=== PATIENT | female | born 1955 | race Caucasian/White ===

== ENCOUNTER 2017-04-10 18:36 | Observation (INO) | payer OTHER ==
--- NOTE | 2017-04-10 20:33 | ERPHSYRPT ---
- History of Present Illness Time Seen by Provider: 04/10/17 20:32 Source: patient Exam Limitations: no limitations Patient Subjective Stated Complaint: Has had a cough for approximately 6 months. Had lab work done yesterday and was called by the doctors office and told to come to the hospital to be admitted. Triage Nursing Assessment: Pt A&O x3, unstable gait, lungs clear, doesn't appear to be in any distress. Physician History: Has had a cough for approximately 6 months. Had lab work done yesterday and was called by the doctors office and told to come to the hospital to be admitted. Timing/Duration: week(s) Associated Symptoms: cough Allergies/Adverse Reactions: No Known Drug Allergies Allergy (Unverified 04/25/14 10:46) Home Medications: Alprazolam 0.25 mg [xanAX 0.25 MG] 0.25 mg PO BID 04/25/14 [History] Hydrochlorothiazide 12.5 mg PO DAILY 04/25/14 [History] Lisinopril 40 mg PO DAILY 04/25/14 [History] Metformin HCl 1000 mg [Glucophage 1000 MG] 1,000 mg PO BID 04/25/14 [History] Metoprolol Succinate 50 mg [Toprol Xl 50 MG] 50 mg PO BID 04/25/14 [ History] Sertraline HCl 100 mg [Zoloft 100 MG] 100 mg PO DAILY 04/25/14 [History] Hx Tetanus, Diphtheria Vaccination/Date Given: Yes Hx Influenza Vaccination/Date Given: Yes (2013) Hx Pneumococcal Vaccination/Date Given: No Immunizations Up to Date: Yes - Review of Systems Constitutional: No Fever, No Chills Eyes: No Symptoms Ears, Nose, & Throat: No Symptoms Respiratory: No Cough, No Dyspnea Cardiac: No Chest Pain, No Edema, No Syncope Abdominal/Gastrointestinal: No Abdominal Pain, No Nausea, No Vomiting, No Diarrhea Genitourinary Symptoms: No Dysuria Musculoskeletal: No Back Pain, No Neck Pain Skin: No Rash Neurological: No Dizziness, No Focal Weakness, No Sensory Changes Psychological: No Symptoms Endocrine: No Symptoms All Other Systems: Reviewed and Negative - Past Medical History Pertinent Past Medical History: Yes ENT History: Other Respiratory History: Other Endocrine Medical History: Diabetes Type II Other Medical History: 1/2 THYROID REMOVED, CHRONIC COUGH, HEARING LOSS IN BOTH EARS FOR APPROX 3 DAYS 6 WEEKS AGO - Past Surgical History Past Surgical History: Yes Musculoskeletal: Orthopedic Surgery Other Surgical History: THYROIDECTOMY, LEILANI IN LEFT LEG - Social History Smoking Status: Never smoker Exposure to second hand smoke: No Drug Use: none Patient Lives Alone: No - Female History Hx Now: No - Nursing Vital Signs Nursing Vital Signs: Initial Vital Signs Temperature 97.8 F 04/10/17 20:17 Pulse Rate 67 04/10/17 20:17 Blood Pressure 156/61 04/10/17 20:17 O2 Sat by Pulse Oximetry 94 L 04/10/17 20:17 Pain Scale Pain Intensity 0 - Physical Exam General Appearance: no apparent distress, alert Eye Exam: PERRL/EOMI, eyes nml inspection Ears, Nose, Throat Exam: normal ENT inspection, TMs normal, pharynx normal, moist mucous membranes Neck Exam: normal inspection, non-tender, supple, full range of motion Respiratory Exam: normal breath sounds, lungs clear, No respiratory distress Cardiovascular Exam: regular rate/rhythm, normal heart sounds, normal peripheral pulses Gastrointestinal/Abdomen Exam: soft, normal bowel sounds, No tenderness, No mass Back Exam: normal inspection, normal range of motion, No CVA tenderness, No vertebral tenderness Extremity Exam: normal inspection, normal range of motion, pelvis stable Neurologic Exam: alert, oriented x 3, cooperative, normal mood/affect, nml cerebellar function, nml station & gait, sensation nml, No motor deficits Skin Exam: normal color, warm, dry, No rash Lymphatic Exam: No adenopathy SpO2: 94 Oxygen Delivery: Room Air - Course Nursing assessment & vital signs reviewed: Yes Ordered Tests: Active Orders 24 hr Category Date Time Status Oxygen-ED Only NASAL CANNULA 2 lpm Care 04/10/17 20:42 Active Medication Summary Generic Name Dose Route Start Last Admin Trade Name Freq PRN Reason Stop Dose Admin Ceftriaxone Sodium/Dextrose 1 g in 50 mls @ 100 mls/hr 04/10/17 20:42 Rocephin 1 Gm-D5w 50 Ml Bag IV 04/10/17 21:11 STAT STA Sodium Chloride 1,000 mls @ 999 mls/hr 04/10/17 20:42 Sodium Chloride 0.9% 1000 Ml IV 04/10/17 21:42 .Q1H1M STA - Progress Progress: unchanged Counseled pt/family regarding: lab results, diagnosis, need for follow-up, rad results - Departure Time of Disposition: 20:43 Departure Disposition: Observation Clinical Impression: Acute renal insufficiency, Dehydration, Cough Condition: Fair Critical Care Time: Yes Critical Care Time(excluding separately billable procedures): 30-74 minutes Referrals: SARA FAIRCHILD [Primary Care Provider] -
[2017-04-10] MEDS ORDERED: Sodium Chloride 0.9% 1000 ML 1,000 ML IV STA (20:42)
[2017-04-10] MEDS ORDERED: ROCEPHIN 1 Gm-D5w 50 ml Bag** 1 G/50 ML IVPB IV STA (20:42)
[2017-04-10] MEDS ORDERED: Sodium Chloride 0.9% 1000 ML 1,000 ML ONE (20:45)
[2017-04-10] MEDS ORDERED: ROCEPHIN 1 Gm-D5w 50 ml Bag** 1 G/50 ML IVPB IV ONE (20:45)
[2017-04-10] MEDS ORDERED: Sodium Chloride 0.9% 1000 ML 1,000 ML IV SCH (22:15)
[2017-04-10] MEDS ORDERED: TYLENOL 325 MG PO PRN (22:15)
[2017-04-10] MEDS ORDERED: Lantus Insulin ONE (23:11)
[2017-04-10] MEDS ORDERED: Lantus Insulin SQ SCH (23:23)
[2017-04-11 00:44] LABS: Bilirubin NEGATIVE (NEGATIVE); Blood TRACE NON-HEM Ery/ul (0-5); COMPLETE URINE MICROSCOPIC? YES; Collection Type CLEAN CATCH; Glucose 100 mg/dL (NEGATIVE); Leukocyte Esterase NEGATIVE (NEGATIVE)
[2017-04-11 00:45] LABS: Epithelial Cells FEW /HPF (FEW); Mucus SLIGHT /HPF (NEGATIVE)
[2017-04-11] MEDS ORDERED: DUONEB 0.5-3 MG/3 ml Neb IH SCH (01:00)
[2017-04-11 05:37] LABS: Mean Corpuscular Hemoglobin 26.5 pg (26-32); Mean Platelet Volume 8.7 fl (6-9.5); Platelet Count 318 K/mm3 (150-450); Red Blood Count 3.39 M/mm3 (4.1-5.4); Red Cell Distribution Width 16.1 % (11.5-14.0); White Blood Count 15.4 K/mm3 (4.0-10.5)
[2017-04-11 06:11] LABS: ALBUMIN 2.1 g/dL (3.4-5.0); BILIRUBIN,TOTAL 0.2 mg/dL (0.2-1.0); Carbon Dioxide 19.4 mEq/L (21-32); Potassium 4.3 mEq/L (3.5-5.1); Total Protein 6.7 gm/dL (6.4-8.2)
[2017-04-11 07:37] LABS: Total Cells Counted 100
[2017-04-11 07:38] LABS: ANISOCYTOSIS 1+; Platelet Estimate NORMAL (NORMAL); Poikilocytosis 1+
--- NOTE | 2017-04-11 08:45 | XRAY ---
Indication: Chronic cough. New admission. Comparison: March 31, 2017. AP/lateral chest again hyperinflated with now subtle lingular and right base infiltrate versus atelectasis. No consolidation/large effusion. Heart is not enlarged. Vascularity normal. Stable right ventricular shunt catheter, bony degenerative changes, mild scoliosis, and old right humeral fracture. Impression: Interval developing lingular and right base infiltrate/atelectasis. Correlate clinically. Comment: Preliminary interpretation was made by [facility] who does not report the lung findings.
--- NOTE | 2017-04-11 09:12 | PCM.HP ---
History of Present Illness - Chief Complaint Chief Complaint: cough and elevated wbc Date: 04/11/17 History of Present Illness: is a 62 year old female. who suffers from htn, diabetes and ckd stage IV. She saw Dr. Vargas a couple days ago and had labs drawn on 04/08 that showed luekocystois and a worsening of her ckd her creatinine was up to 2.8 and baseline is around 2.2 it appears. She follows with Dr. Beard. She has been having cough for several weeks and has been on prednisone up until a couple days ago. She otherwise feels ok. She was drinking a little less. She has no fever or chills. No vomiting or diarrhea. no skin infections or dysuria. She did stop her lisinopril 3 days ago under direction of Dr. Vargas. She is wanting to go home if possible as she has grandchildren she hasn't seen in a few years coming to visit today from [place]. - Review of Systems Constitutional: No Fever, No Chills Eyes: No Symptoms Ears, Nose, & Throat: No Symptoms Respiratory: Cough, No Short Of Breath Cardiac: No Chest Pain, No Edema, No Syncope Abdominal/Gastrointestinal: No Abdominal Pain, No Nausea, No Vomiting, No Diarrhea Genitourinary Symptoms: No Dysuria Musculoskeletal: No Back Pain, No Neck Pain Skin: No Rash Neurological: No Dizziness, No Focal Weakness, No Sensory Changes Psychological: No Symptoms Endocrine: No Symptoms Hematologic/Lymphatic: No Symptoms Immunological/Allergic: No Symptoms Medications & Allergies Home Medications: Home Medication List Metoprolol Succinate 50 mg [Toprol Xl 50 MG] 50 mg PO BID 04/25/14 [ History Confirmed 04/10/17] Sertraline HCl 100 mg [Zoloft 100 MG] 100 mg PO DAILY 04/25/14 [History Confirmed 04/10/17] Atorvastatin Calcium 40 mg PO DAILY 04/10/17 [History Confirmed 04/10/17] Ergocalciferol (Vitamin D2) [Vitamin D2] 50,000 unit PO Q7D 04/10/17 [History Confirmed 04/10/17] Ferrous Sulfate 325 mg [Feosol 325 mg] 325 mg PO BID 04/10/17 [History Confirmed 04/10/17] Folic Acid 1 mg PO DAILY 04/10/17 [History Confirmed 04/10/17] Furosemide 20 mg PO DAILY 04/10/17 [History Confirmed 04/10/17] Insulin Detemir [Levemir] 70 units SQ BID 04/10/17 [History Confirmed 04/10/17] Insulin Lispro [Humalog] 30 unit SQ TID 04/10/17 [History Confirmed 04/10/17] Sertraline HCl 50 mg [Zoloft 50 mg Tablet] 50 mg PO DAILY 04/10/17 [History Confirmed 04/10/17] Doxycycline Hyclate 100 mg [Vibramycin 100 MG] 100 mg PO BID #14 tab 04/11 [Rx] Allergies/Adverse Reactions: Allergies Allergy/AdvReac Type Severity Reaction Status Date / Time No Known Drug Allergies Allergy Verified 04/10/17 21:10 - Past Medical History Past Medical History: Yes Neurological History: No Pertinent History ENT History: Other Cardiac History: No Pertinent History Respiratory History: Other Endocrine Medical History: Diabetes Type II Musculoskelatal History: No Pertinent History GI Medical History: No Pertinent History History: No Pertinent History Pyscho-Social History: No Pertinent History Reproductive Disorders: No Pertinent History Comment: 1/2 THYROID REMOVED, CHRONIC COUGH, HEARING LOSS IN BOTH EARS FOR APPROX 3 DAYS 6 WEEKS AGO, optic nerve damage left eye - Female History Are you now?: No - Past Surgical History Past Surgical History: Yes Neuro Surgical History: No Pertinent History Cardiac History: No Pertinent History Respiratory Surgery: No Pertinent History GI Surgical History: No Pertinent History Genitourinary Surgical Hx: No Pertinent History Musculskeletal Surgical Hx: Orthopedic Surgery Female Surgical History: No Pertinent History Other Surgical History: THYROIDECTOMY 13 yrs ago, LEILANI IN LEFT LEG - Social History Smoking Status: Never smoker Exposure to second hand smoke: No Alcohol: None Drug Use: none - Physical Exam Vital Signs: Vital Signs - 24 hr Temp Pulse Resp BP Pulse Ox 04/11/17 06:49 98.4 F 82 16 163/76 91 L 04/11/17 04:00 98.3 F 74 14 169/77 95 04/10/17 23:40 76 18 98 04/10/17 23:32 98.4 F 70 15 169/76 96 04/10/17 20:44 94 L 04/10/17 20:17 97.8 F 67 156/61 94 L General Appearance: no apparent distress, alert Neurologic Exam: alert, oriented x 3, cooperative, normal mood/affect, nml cerebellar function, nml station & gait, sensation nml, No motor deficits Eye Exam: PERRL/EOMI, eyes nml inspection Ears, Nose, Throat Exam: normal ENT inspection, TMs normal, pharynx normal, moist mucous membranes Neck Exam: normal inspection, non-tender, supple, full range of motion Respiratory Exam: normal breath sounds, lungs clear, No respiratory distress Cardiovascular Exam: regular rate/rhythm, normal heart sounds, normal peripheral pulses Gastrointestinal/Abdomen Exam: soft, normal bowel sounds, No tenderness, No mass Back Exam: normal inspection, normal range of motion, No CVA tenderness, No vertebral tenderness Extremity Exam: normal inspection, normal range of motion, pelvis stable Skin Exam: normal color, warm, dry, No rash Lymphatic Exam: No adenopathy Results - Labs Lab/Micro Results: Accuchecks Date 04/10/17 Time 22:45 Accucheck Value: 112 Lab Results-Last 24 Hours 04/10/17 04/10/17 04/11/17 Range/Units 23:02 23:21 05:17 WBC 15.4 H (4.0-10.5) K/mm3 RBC 3.39 L (4.1-5.4) M/mm3 Hgb 9.0 L (12.0-16.0) gm/dl Hct 29.5 L (35-47) % MCV 87.0 (78-100) fl MCH 26.5 (26-32) pg MCHC 30.5 L (32-36) g/dl RDW 16.1 H (11.5-14.0) % Plt Count 318 (150-450) K/mm3 MPV 8.7 (6-9.5) fl Segmented Neutrophils 74 H (36.0-66.0) % Lymphocytes (Manual) 24 (24-44) % Monocytes (Manual) 2 (0.0-12.0) % Differential Comment ABNORMAL Platelet Estimate NORMAL (NORMAL) Poikilocytosis 1+ Anisocytosis 1+ Sodium (136-145) mEq/L Potassium (3.5-5.1) mEq/L Chloride (98-107) mEq/L Carbon Dioxide (21-32) mEq/L Anion Gap (5-15) MEQ/L BUN (9-20) mg/dL Creatinine (0.55-1.30) mg/dl Estimated GFR ML/MIN Glucose (70-110) MG/DL Calcium (8.5-10.1) mg/dL Total Bilirubin (0.2-1.0) mg/dL AST (15-37) U/L ALT (12-78) U/L Alkaline Phosphatase (46-116) U/L Serum Total Protein (6.4-8.2) gm/dL Albumin (3.4-5.0) g/dL Ur Collection Type CLEAN CATCH Urine Color YELLOW (YELLOW) Urine Appearance CLOUDY (CLEAR) Urine pH 5.0 (5-6) Ur Specific [place] 1.020 (1.005-1.025) Urine Protein 100 (Negative) Urine Ketones NEGATIVE (NEGATIVE) Urine Blood TRACE NON-HEM (0-5) Severo/ul Urine Nitrite NEGATIVE (NEGATIVE) Urine Bilirubin NEGATIVE (NEGATIVE) Urine Urobilinogen NORMAL (0-1) mg/dL Ur Leukocyte Esterase NEGATIVE (NEGATIVE) Urine Microscopic RBC 0-2 (0-2) /HPF Ur Epithelial Cells FEW (FEW) /HPF Amorphous Crystals FEW (NEGATIVE) /HPF Urine Mucus SLIGHT (NEGATIVE) /HPF Urine Glucose 100 (NEGATIVE) mg/dL Influenza Type A Ag NEGATIVE (NEGATIVE) Influenza Type B Ag NEGATIVE (NEGATIVE) RSV (PCR) NEGATIVE (Negative) Specimen Received [id number] 04/11/17 Range/Units 05:17 WBC (4.0-10.5) K/mm3 RBC (4.1-5.4) M/mm3 Hgb (12.0-16.0) gm/dl Hct (35-47) % MCV (78-100) fl MCH (26-32) pg MCHC (32-36) g/dl RDW (11.5-14.0) % Plt Count (150-450) K/mm3 MPV (6-9.5) fl Segmented Neutrophils (36.0-66.0) % Lymphocytes (Manual) (24-44) % Monocytes (Manual) (0.0-12.0) % Differential Comment Platelet Estimate (NORMAL) Poikilocytosis Anisocytosis Sodium 141 (136-145) mEq/L Potassium 4.3 (3.5-5.1) mEq/L Chloride 111 H (98-107) mEq/L Carbon Dioxide 19.4 L (21-32) mEq/L Anion Gap 15.0 (5-15) MEQ/L BUN 45 H (9-20) mg/dL Creatinine 2.64 H (0.55-1.30) mg/dl Estimated GFR 19 ML/MIN Glucose 150 H (70-110) MG/DL Calcium 8.8 (8.5-10.1) mg/dL Total Bilirubin 0.20 (0.2-1.0) mg/dL AST 15 (15-37) U/L ALT 16 (12-78) U/L Alkaline Phosphatase 113 (46-116) U/L Serum Total Protein 6.7 (6.4-8.2) gm/dL Albumin 2.1 L (3.4-5.0) g/dL Ur Collection Type Urine Color (YELLOW) Urine Appearance (CLEAR) Urine pH (5-6) Ur Specific [place] (1.005-1.025) Urine Protein (Negative) Urine Ketones (NEGATIVE) Urine Blood (0-5) Severo/ul Urine Nitrite (NEGATIVE) Urine Bilirubin (NEGATIVE) Urine Urobilinogen (0-1) mg/dL Ur Leukocyte Esterase (NEGATIVE) Urine Microscopic RBC (0-2) /HPF Ur Epithelial Cells (FEW) /HPF Amorphous Crystals (NEGATIVE) /HPF Urine Mucus (NEGATIVE) /HPF Urine Glucose (NEGATIVE) mg/dL Influenza Type A Ag (NEGATIVE) Influenza Type B Ag (NEGATIVE) RSV (PCR) (Negative) Specimen Received Accuchecks Date 04/10/17 Time 22:45 Accucheck Value: 112 - Radiology Impressions Radiology Exams & Impressions: Radiology Procedures Category Date Time Status CHEST 2 VIEWS (PA AND LAT) Urgent Exams 04/10/17 23:52 Completed Assessment/Plan (1) Pneumonia Current Visit: Yes Status: Acute Qualifiers: Laterality: left Lung location: upper lobe of lung Assessment & Plan: small left lingular pneumonia with luekocytosis and acute on chronic kidney injury. She remains afebrile with slight hypertension no tachycardia and no need for oxygen. Her exam is unremarkable today. She feels a little better with the iv fluids and her creatinine is improved some. She received IV Rocephin and azithromycin. It looks like she may have just been treated with azithromycin recently. She just finished prednisone treatment. Her wbc is improving. She appears clinically stable I encouraged good po intake and she is requesting to go home today. 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 She is to return for worsening symptoms. with her renal insufficiency had her stop her metformin for now until discussing it at f/u Code(s): J18.9 - PNEUMONIA, UNSPECIFIED ORGANISM (2) CKD stage 4 due to type 2 diabetes mellitus Current Visit: Yes Status: Acute Code(s): E11.22 - TYPE 2 DIABETES MELLITUS W DIABETIC CHRONIC KIDNEY DISEASE; N18.4 - CHRONIC KIDNEY DISEASE, STAGE 4 ( SEVERE) (3) Type 2 diabetes mellitus Current Visit: Yes Status: Acute (4) Essential hypertension Current Visit: Yes Status: Acute Code(s): I10 - ESSENTIAL (PRIMARY) HYPERTENSION (5) Chronic anemia Current Visit: Yes Status: Acute Code(s): D64.9 - ANEMIA, UNSPECIFIED
--- NOTE | 2017-04-11 09:15 | PCM.DCORD ---
- Discharge Discharge Date: 04/11/17 Disposition: Home, Self-Care Condition: Fair Prescriptions: New Doxycycline Hyclate 100 mg [Vibramycin 100 MG] 100 mg PO BID #14 tab Continue Sertraline HCl 100 mg [Zoloft 100 MG] 100 mg PO DAILY Metoprolol Succinate 50 mg [Toprol Xl 50 MG] 50 mg PO BID Sertraline HCl 50 mg [Zoloft 50 mg Tablet] 50 mg PO DAILY Ferrous Sulfate 325 mg [Feosol 325 mg] 325 mg PO BID Insulin Detemir [Levemir] 70 units SQ BID Furosemide 20 mg PO DAILY Insulin Lispro [Humalog] 30 unit SQ TID Folic Acid 1 mg PO DAILY Ergocalciferol (Vitamin D2) [Vitamin D2] 50,000 unit PO Q7D Atorvastatin Calcium 40 mg PO DAILY Discontinued Metformin HCl 500 mg [Glucophage 500 MG] 250 mg PO BID Follow up with: SARA FAIRCHILD [Primary Care Provider] - 04/15/17 11:15 am
[2017-04-11] MEDS ORDERED: Zithromax 500 MG/ 250 ML NaCl Premix 500 MG/250 ML IVPB IV SCH ×2 (10:00→22:00)
[2017-04-11] MEDS ORDERED: ENOXAPARIN SODIUM SQ SCH (10:00)
[2017-04-11 11:27] VITALS: BP 184/82; PULSE 85; O2SAT 93
[2017-04-11] MEDS ORDERED: ROCEPHIN 1 Gm-D5w 50 ml Bag** 1 G/50 ML IVPB IV SCH (22:00)
[2017-04-11] MEDS ORDERED: Lantus Insulin SQ SCH (23:00)
== END 2017-04-11 12:35 | disposition home or self-care (01) ==
LOC: ED 18:36 → MED SURG 22:10
PROVIDERS: ADMIT Family Medicine; ATTEND Family Medicine
DX: J18.9 Pneumonia, unspecified organism (principal); I12.9 Hypertensive chronic kidney disease with stage 1 through stage 4 chronic kidney disease, or unspecified chronic kidney disease; E11.22 Type 2 diabetes mellitus with diabetic chronic kidney disease; N18.4 Chronic kidney disease, stage 4 (severe); D64.9 Anemia, unspecified; Z79.4 Long term (current) use of insulin; Z79.899 Other long term (current) drug therapy
CPT/HCPCS: 36000; 36415; 71020; 80053; 81000; 85025; 87631; 94760; 96360; 96361; 96365; 99285; G0378; J0456; J0696; J1650; A9270-GY

== ENCOUNTER 2018-09-30 12:58 | Emergency (ER) | payer OTHER ==
[2018-09-30 13:18] VITALS: O2SAT 100
--- NOTE | 2018-09-30 13:30 | ERPHSYRPT ---
- History of Present Illness Time Seen by Provider: 09/30/18 13:20 Source: patient Exam Limitations: no limitations Patient Subjective Stated Complaint: EMS states low blood sugar at approx 30 per EMS. unresponsive at that time. dialysis pt. IV started and given glucogon and D50 per EMS and was awakening on arrival. confused on where she is. noted open lesions on bilateral lower legs.. she states she has been scratching them she states they are aware of their condition. Triage Nursing Assessment: awake and slightly confused. she arrives after a BS of approx 30 when EMS arrived at their house. D/C from [facility] yesterday. IV was started per EMS and was given glucogon and D50. was awakening when she arrived.. able to state her name but unsure of where she was.. was reassured. denies pain. has open lesions to bilateral lower legs. she states dialysis was aware. of the legs. Physician History: 63-year-old white female brought by medics with complaint of possible hypoglycemic episode. Patient apparently was found on the floor by her family members unresponsive medics were summoned patient was noted to have a blood sugar of 30 she was given an amp of glucagon and an amp of D50 she is now awake and alert oriented. Patient is moving all extremities she has no neurologic deficits. Past medical history includes diabetes type 2, chronic renal failure on dialysis she's had half of her thyroid removed she's had a history of a chronic cough. Past medical history includes orthopedic surgery thyroidectomy and ORIF of the left leg. Timing/Duration: today Severity: moderate Modifying Factors: Improves With: nothing Associated Symptoms: other (found on floor at home with low blood sugar of 30), No nausea, No vomiting, No abdominal pain, No shortness of breath, No heartburn , No diaphoresis, No cough, No chills, No chest pain, No fever, No headaches, No loss of appetite, No malaise, No rash, No syncope, No seizure, No weakness Allergies/Adverse Reactions: No Known Drug Allergies Allergy (Verified 08/04/18 15:19) Home Medications: Atorvastatin Calcium 40 mg PO DAILY 07/07/18 [History] Ergocalciferol (Vitamin D2) [Vitamin D2] 50,000 unit PO WEEKLY 07/07/18 [History ] Ferrous Sulfate 325 mg [Feosol 325 mg] 325 mg PO BID 07/07/18 [History] Folic Acid 1 mg [Folate 1 mg] 1 mg PO DAILY 07/07/18 [History] Furosemide 20 mg [Lasix 20 mg] 20 mg PO DAILY 07/07/18 [History] Insulin Aspart [NovoLOG Insulin] 30 unit SQ TID 07/07/18 [History] Insulin Detemir [Levemir] 100 unit SQ HS 07/07/18 [History] Metoprolol Succinate 50 mg [Toprol Xl 50 MG] 50 mg PO BID 07/07/18 [ History] Sertraline HCl 50 mg [Zoloft 50 mg Tablet] 50 mg PO DAILY 07/07/18 [History] Sertraline HCl [Zoloft] 100 mg PO DAILY 07/07/18 [History] Hx Tetanus, Diphtheria Vaccination/Date Given: Yes Hx Influenza Vaccination/Date Given: Yes (2013) Hx Pneumococcal Vaccination/Date Given: No Immunizations Up to Date: (unknown) - Review of Systems Constitutional: No Fever, No Chills Eyes: No Symptoms Ears, Nose, & Throat: No Symptoms Respiratory: No Cough, No Dyspnea Cardiac: No Chest Pain, No Edema, No Syncope Abdominal/Gastrointestinal: No Abdominal Pain, No Nausea, No Vomiting, No Diarrhea Genitourinary Symptoms: No Dysuria Musculoskeletal: No Back Pain, No Neck Pain Skin: No Rash Neurological: Other (found unresponsive at homewwith Accu-Chek of 30), No Dizziness, No Focal Weakness, No Gait Changes, No Headache, No Irritability, No Lethargy, No Paralysis, No Parasthesia, No Seizure, No Sensory Changes, No Speech Changes, No Tics, No Tremors, No Vertigo Psychological: No Symptoms Endocrine: No Symptoms All Other Systems: Reviewed and Negative - Past Medical History Pertinent Past Medical History: Yes Neurological History: No Pertinent History ENT History: Other Cardiac History: No Pertinent History Respiratory History: Other Endocrine Medical History: Diabetes Type II Musculoskeletal History: No Pertinent History GI Medical History: No Pertinent History History: No Pertinent History Psycho-Social History: No Pertinent History Female Reproductive Disorders: No Pertinent History Other Medical History: 1/2 THYROID REMOVED, CHRONIC COUGH, HEARING LOSS IN BOTH EARS FOR APPROX 3 DAYS 6 WEEKS AGO, optic nerve damage alfredo. eye - Past Surgical History Past Surgical History: Yes Neuro Surgical History: No Pertinent History Cardiac: No Pertinent History Respiratory: No Pertinent History Gastrointestinal: No Pertinent History Genitourinary: No Pertinent History Musculoskeletal: Orthopedic Surgery Female Surgical History: No Pertinent History Other Surgical History: partial /THYROIDECTOMY , LEILANI IN LEFT LEG - Social History Smoking Status: Never smoker Exposure to second hand smoke: No Drug Use: none Patient Lives Alone: No - Female History Hx Now: No - Nursing Vital Signs Nursing Vital Signs: Initial Vital Signs Pulse Rate 61 09/30/18 13:06 Respiratory Rate 18 09/30/18 13:06 Blood Pressure 172/72 09/30/18 13:06 O2 Sat by Pulse Oximetry 100 09/30/18 13:06 Pain Scale Pain Intensity 0 - Physical Exam General Appearance: no apparent distress, alert Eye Exam: PERRL/EOMI, eyes nml inspection Ears, Nose, Throat Exam: normal ENT inspection, TMs normal, pharynx normal, moist mucous membranes Neck Exam: normal inspection, non-tender, supple, full range of motion Respiratory Exam: normal breath sounds, lungs clear, No respiratory distress Cardiovascular Exam: regular rate/rhythm, normal heart sounds, normal peripheral pulses, capillary refill <2 sec Gastrointestinal/Abdomen Exam: soft, normal bowel sounds, No tenderness, No mass Back Exam: normal inspection, normal range of motion, No CVA tenderness, No vertebral tenderness Extremity Exam: normal inspection, normal range of motion, pelvis stable Neurologic Exam: alert, oriented x 3, cooperative, parts person II-XII nml as tested, normal mood/affect, nml cerebellar function, nml station & gait, sensation nml, No motor deficits Skin Exam: normal color, warm, dry, No rash Lymphatic Exam: No adenopathy SpO2 Interpretation: normal (100%) SpO2: 100 - Course Nursing assessment & vital signs reviewed: Yes EKG Interpreted by Me: RATE (62 bpm), Sinus Rhythm, Other (EKG: Sinus rhythm ^@ BEATS PER MINUTE AXISSI/QIII pattern, no acute ST or T wave changes noted incomplete right bundle branch block) Ordered Tests: Active Orders 24 hr Category Date Time Status EKG-ER Only STAT Care 09/30/18 13:16 Active IV Insertion STAT Care 09/30/18 13:16 Active 1800 Calorie ADA Diet 09/30/18 Dinner Active CBC W DIFF Stat Lab 09/30/18 13:37 Completed CMP Stat Lab 09/30/18 13:37 Completed CULTURE,URINE Stat Lab 09/30/18 13:37 Received Glucose,Critical Care Urgent Lab 09/30/18 13:37 Completed Glucose,Critical Care Urgent Lab 09/30/18 14:46 Completed Manual Differential NC Stat Lab 09/30/18 13:37 Completed TROPONIN Q3H Lab 09/30/18 13:39 Completed TROPONIN Q3H Lab 09/30/18 16:30 Ordered TROPONIN Q3H Lab 09/30/18 19:30 Ordered TROPONIN Q3H Lab 09/30/18 22:30 Ordered TROPONIN Q3H Lab 10/01/18 01:30 Ordered UA W/RFX UR CULTURE Stat Lab 09/30/18 13:37 Completed Lab/Rad Data: Laboratory Result Diagrams 09/30/18 13:37 09/30/18 13:37 Laboratory Results 09/30/18 09/30/18 09/30/18 Range/Units 14:46 13:39 13:37 WBC (4.0-10.5) K/mm3 RBC (4.1-5.4) M/mm3 Hgb (12.0-16.0) gm/dl Hct (35-47) % MCV (78-100) fl MCH (26-32) pg MCHC (32-36) g/dl RDW (11.5-14.0) % Plt Count (150-450) K/mm3 MPV (6-9.5) fl Glucose 340 H (70-110) Sodium (137-145) mmol/L Potassium (3.5-5.1) mmol/L Chloride (98-107) mmol/L Carbon Dioxide (22-30) mmol/L Anion Gap (5-15) MEQ/L BUN (7-17) mg/dL Creatinine (0.52-1.04) mg/dL Estimated GFR ML/MIN Calcium (8.4-10.2) mg/dL Total Bilirubin (0.2-1.3) mg/dL AST (14-36) U/L ALT (0-35) U/L Alkaline Phosphatase (38-126) U/L Troponin I 0.024 (0.000-0.034) ng/mL Serum Total Protein (6.3-8.2) g/dL Albumin (3.5-5.0) g/dL Urine Color YELLOW (YELLOW) Urine Appearance CLEAR (CLEAR) Urine pH 8.0 (5-6) Ur Specific Edwards 1.011 (1.005-1.025) Urine Protein >=500 (Negative) Urine Ketones NEGATIVE (NEGATIVE) Urine Blood NEGATIVE (0-5) Severo/ul Urine Nitrite NEGATIVE (NEGATIVE) Urine Bilirubin NEGATIVE (NEGATIVE) Urine Urobilinogen NEGATIVE (0-1) mg/dL Ur Leukocyte Esterase NEGATIVE (NEGATIVE) Urine WBC (Auto) 6-10 (0-5) /HPF Urine RBC (Auto) 0-2 (0-2) /HPF U Epithel Cells (Auto) NONE (FEW) /HPF Urine Bacteria (Auto) RARE (NEGATIVE) /HPF Urine Culture Reflexed ORDERED SEPARATELY (NO) Urine Glucose 150 (NEGATIVE) mg/dL 09/30/18 09/30/18 09/30/18 Range/Units 13:37 13:37 13:37 WBC 10.6 H (4.0-10.5) K/mm3 RBC 3.50 L (4.1-5.4) M/mm3 Hgb 9.1 L (12.0-16.0) gm/dl Hct 30.3 L (35-47) % MCV 86.6 (78-100) fl MCH 26.0 (26-32) pg MCHC 30.0 L (32-36) g/dl RDW 17.3 H (11.5-14.0) % Plt Count 280 (150-450) K/mm3 MPV 9.1 (6-9.5) fl Glucose 277 H 253 H (70-110) Sodium 141 (137-145) mmol/L Potassium 4.1 (3.5-5.1) mmol/L Chloride 99 (98-107) mmol/L Carbon Dioxide 28 (22-30) mmol/L Anion Gap 17.7 H (5-15) MEQ/L BUN 43 H (7-17) mg/dL Creatinine 4.94 H (0.52-1.04) mg/dL Estimated GFR 9.4 ML/MIN Calcium 9.7 (8.4-10.2) mg/dL Total Bilirubin 0.40 (0.2-1.3) mg/dL AST 15 (14-36) U/L ALT 13 (0-35) U/L Alkaline Phosphatase 100 (38-126) U/L Troponin I (0.000-0.034) ng/mL Serum Total Protein 7.6 (6.3-8.2) g/dL Albumin 3.8 (3.5-5.0) g/dL Urine Color (YELLOW) Urine Appearance (CLEAR) Urine pH (5-6) Ur Specific Edwards (1.005-1.025) Urine Protein (Negative) Urine Ketones (NEGATIVE) Urine Blood (0-5) Severo/ul Urine Nitrite (NEGATIVE) Urine Bilirubin (NEGATIVE) Urine Urobilinogen (0-1) mg/dL Ur Leukocyte Esterase (NEGATIVE) Urine WBC (Auto) (0-5) /HPF Urine RBC (Auto) (0-2) /HPF U Epithel Cells (Auto) (FEW) /HPF Urine Bacteria (Auto) (NEGATIVE) /HPF Urine Culture Reflexed (NO) Urine Glucose (NEGATIVE) mg/dL - Progress Progress: improved Progress Note: 09/30/18 14:57 63-year-old white female arrives with a complaint of a hypoglycemic episode. Patient apparently found unresponsive at home with a blood sugar of 30. She has no chest pain she is not short of breath she is oriented and alert. She had a blood sugar of 30 on arrival of medics she was given an amp of glucagon an amp of D50 arrived with a blood sugar of 277. Patient was a meal she is now 340 blood pressures are stable Labs sodium 141 potassium 4.1 chloride 99 bicarbonate 28 BUN 43 creatinine 4.94 glucose 1 chemistry is 253 patient's CBC white blood cell 10.6 hemoglobin 9.1 hematocrit 30.3 urinalysis 6-10 white cells negative nitrites Patient currently is alert oriented x3 in no distress she is EKG sinus rhythm 62 beats per minute no acute ST or T wave changes she does have right bundle branch block will discharge patient . Impression mental status change. Hypoglycemic episode. - Departure Departure Disposition: Home Clinical Impression: Hypoglycemic episode in patient with diabetes mellitus Change in mental status Qualifiers: Altered mental status type: unspecified Qualified Code(s): R41.82 - Altered mental status, unspecified Condition: Fair Critical Care Time: No Referrals: SARA FAIRCHILD [Primary Care Provider] - Additional Instructions: Return home. Monitor your blood sugars carefully. Followup with your family doctor or renal Dr. be sure you eat her meals. Return for acute distress or for severe symptoms.
[2018-09-30 13:47] LABS: Hematocrit 30.3 % (35-47); Hemoglobin 9.1 gm/dl (12.0-16.0); Mean Cell Volume 86.6 fl (78-100); Mean Platelet Volume 9.1 fl (6-9.5); Platelet Count 280 K/mm3 (150-450); Red Cell Distribution Width 17.3 % (11.5-14.0); White Blood Count 10.6 K/mm3 (4.0-10.5)
[2018-09-30 13:48] LABS: Appearance CLEAR (CLEAR); Bacteria RARE /HPF (NEGATIVE); Bilirubin NEGATIVE (NEGATIVE); Blood NEGATIVE Ery/ul (0-5); Glucose 150 mg/dL (NEGATIVE); Ketones NEGATIVE (NEGATIVE); Leukocyte Esterase NEGATIVE (NEGATIVE); Nitrite NEGATIVE (NEGATIVE); Protein,Urine Dip >=500 (Negative); RBC 0-2 /HPF (0-2); Specific Gravity 1.011 (1.005-1.025); Urobilinogen NEGATIVE mg/dL (0-1)
[2018-09-30 13:58] LABS: ALBUMIN 3.8 g/dL (3.5-5.0); ANION GAP 17.7 MEQ/L (5-15); BILIRUBIN,TOTAL 0.4 mg/dL (0.2-1.3); Calcium 9.7 mg/dL (8.4-10.2); Creatinine 1 4.94 mg/dL (0.52-1.04); Potassium 4.1 mmol/L (3.5-5.1); Total Protein 7.6 g/dL (6.3-8.2)
[2018-09-30 15:25] LABS: Lymphocytes 14 % (24-44); Neutrophils 86 % (36.0-66.0); Total Cells Counted 100
[2018-09-30 15:26] LABS: ANISOCYTOSIS 1+; Platelet Estimate NORMAL (NORMAL)
[2018-09-30 15:28] VITALS: BP 166/61; PULSE 61
== END 2018-09-30 15:25 | disposition home or self-care (01) ==
LOC: ED 12:58
DX: E11.649 Type 2 diabetes mellitus with hypoglycemia without coma (principal); R41.82 Altered mental status, unspecified; Z79.4 Long term (current) use of insulin; Z79.899 Other long term (current) drug therapy; I45.10 Unspecified right bundle-branch block
CPT/HCPCS: 36000; 36415; 80053; 81001; 82947; 84484; 85025; 87086; 93005; 99284

== ENCOUNTER 2021-08-28 17:36 | Emergency (ER) | payer MEDICARE, OTHER ==
[2021-08-28 18:14] VITALS: O2SAT 94
[2021-08-28 18:25] LABS: Hematocrit 30.6 % (35-47); Hemoglobin 9.2 gm/dl (12.0-16.0); Mean Cell Volume 96.2 fl (78-100); Mean Corpuscular Hemoglobin 28.9 pg (26-32); Mean Corpuscular Hgb Concent. 30.1 g/dl (32-36); Mean Platelet Volume 8.5 fl (7.5-11.0); Platelet Count 386 K/mm3 (150-450); Red Blood Count 3.18 M/mm3 (4.1-5.4); Red Cell Distribution Width 15.6 % (11.5-14.0); White Blood Count 19.1 K/mm3 (4.0-10.5)
[2021-08-28 18:31] LABS: ALBUMIN 3.8 g/dL (3.5-5.0); ANION GAP 16.9 MEQ/L (5-15); BILIRUBIN,TOTAL 0.6 mg/dL (0.2-1.3); Calcium 9.7 mg/dL (8.4-10.2); Creatinine 1 3.74 mg/dL (0.52-1.04); EST GLOMERULAR FILTRATION RATE 12.8 ML/MIN; Total Protein 7.7 g/dL (6.3-8.2)
[2021-08-28] MEDS ORDERED: PIPERACILLIN/TAZOBACTAM 3.375 GM in Sodium Chloride 100ML MINI-BAG PLUS 100 ML IV ONE (18:57)
[2021-08-28 19:04] LABS: INFLUENZA A NEGATIVE (NEGATIVE); INFLUENZA B NEGATIVE (NEGATIVE); RESPIRATORY SYNCTIAL VIRUS NEGATIVE (Negative); SARS-CoV-2 Xpert Express NEGATIVE (NEGATIVE)
--- NOTE | 2021-08-28 19:04 | ERPHSYRPT ---
- History of Present Illness Source: patient, other () Exam Limitations: other (Poor historian) Patient Subjective Stated Complaint: PT states "I have an infected bunion." Triage Nursing Assessment: pt presented alert and oriented X 3, skin pwd Pt ambulates with a limp. Pt has open wound in her medial right foot, foul odor. PT stated she has appointment with Dr. Greer next week. Physician History: 66 yo WF w h/o DM/HTN/ESRD on dialysis presents w R 1st metatarsal ulcer x 2 months. Pt has an appointment w Dr. Greer in 1 wk, but her ulcer is getting worse. She denies fever/trauma. Method of Injury: unknown (No injury) Occurred: other (2 weeks) Quality: constant Severity of Pain-Max: mild Severity of Pain-Current: mild Lower Extremities Pain: foot: right Modifying Factors: Improves With: movement Associated Symptoms: No unable to bear weight Allergies/Adverse Reactions: No Known Drug Allergies Allergy (Verified 08/04/18 15:19) Home Medications: Atorvastatin Calcium 40 mg PO DAILY 07/07/18 [History] Ergocalciferol (Vitamin D2) [Vitamin D2] 50,000 unit PO WEEKLY 07/07/18 [History] Folic Acid 1 mg [Folate 1 mg] 1 mg PO DAILY 07/07/18 [History] Insulin Aspart [NovoLOG Insulin] 30 unit SQ TID 07/07/18 [History] Insulin Detemir [Levemir] 74 unit SQ HS 07/07/18 [History] Metoprolol Succinate 50 mg [Toprol Xl 50 MG] 50 mg PO BID 07/07/18 [History] Sertraline HCl 50 mg [Zoloft 50 mg Tablet] 50 mg PO DAILY 07/07/18 [History] Sertraline HCl [Zoloft] 100 mg PO DAILY 07/07/18 [History] HydrALAzine HCL 25 MG TAB [Apresoline 25 MG TABLET] 25 mg PO BID 08/28/21 [History] Sevelamer Carbonate 800 mg PO TID 08/28/21 [History] Hx Tetanus, Diphtheria Vaccination/Date Given: Yes Hx Influenza Vaccination/Date Given: Yes (2013) Hx Pneumococcal Vaccination/Date Given: No Immunizations Up to Date: Yes Travel Risk - International Travel Have you traveled outside of the country in past 3 weeks: No - Coronavirus Screening Are you exhibiting any of the following symptoms?: No Close contact with a COVID-19 positive Pt in past 14-21 Days: No - Vaccine Status Have you recieved a Covid-19 vaccination: Yes Top Tile Decorator: Moderna - Vaccination Dates Date of 2cond Vaccination (if applicable): 21 - Review of Systems Constitutional: No Symptoms Eyes: No Symptoms Ears, Nose, & Throat: No Symptoms Respiratory: No Symptoms Cardiac: No Symptoms Abdominal/Gastrointestinal: No Symptoms Genitourinary Symptoms: No Symptoms Skin: No Symptoms Neurological: No Symptoms Psychological: No Symptoms Endocrine: No Symptoms Hematologic/Lymphatic: No Symptoms Immunological/Allergic: No Symptoms - Past Medical History Pertinent Past Medical History: Yes Neurological History: No Pertinent History ENT History: Other Cardiac History: No Pertinent History Respiratory History: Other Endocrine Medical History: Diabetes Type II Musculoskeletal History: No Pertinent History GI Medical History: No Pertinent History History: No Pertinent History Psycho-Social History: No Pertinent History Female Reproductive Disorders: No Pertinent History Other Medical History: 1/2 THYROID REMOVED, CHRONIC COUGH, HEARING LOSS IN BOTH EARS FOR APPROX 3 DAYS 6 WEEKS AGO, optic nerve damage alfredo. eye - Past Surgical History Past Surgical History: Yes Neuro Surgical History: No Pertinent History Cardiac: No Pertinent History Respiratory: No Pertinent History Gastrointestinal: No Pertinent History Genitourinary: No Pertinent History Musculoskeletal: Orthopedic Surgery Female Surgical History: No Pertinent History Other Surgical History: partial /THYROIDECTOMY , LEILANI IN LEFT LEG - Social History Smoking Status: Never smoker Exposure to second hand smoke: No Drug Use: none Patient Lives Alone: No Significant Family History: no pertinent family hx - Nursing Vital Signs Nursing Vital Signs: Initial Vital Signs Temperature 98.3 F 08/28/21 17:44 Pulse Rate 96 H 08/28/21 17:44 Respiratory Rate 22 08/28/21 17:44 Blood Pressure 138/64 08/28/21 17:44 O2 Sat by Pulse Oximetry 94 L 08/28/21 17:44 Pain Scale Pain Intensity 5 WNL - Physical Exam General Appearance: no apparent distress Eyes, Ears, Nose, Throat Exam: normal ENT inspection, TMs normal, pharynx normal, moist mucous membranes Neck Exam: normal inspection, non-tender, supple, full range of motion, No Brudzinski, No Kernig's, No meningismus Cardiovascular/Respiratory Exam: normal breath sounds, regular rate/rhythm, heart sounds normal Gastrointestinal/Abdominal Exam: non-tender, soft Back Exam: normal inspection Hips Exam: bilateral: non-tender, normal inspection, normal range of motion Knees Exam: bilateral knee: non-tender, normal inspection, normal range of motion, no evidence of injury Foot Exam: right foot: other (R lateral distal 1st metatarsal ulcer w associated cellulitis/Good pedal pulse) Neuro/Tendon Exam: sensory deficit (Diabetic neuropathy) Mental Status Exam: alert, oriented x 3, cooperative Skin Exam: normal color SpO2 Interpretation: normal SpO2: 94 O2 Delivery: Room Air - Course Nursing assessment & vital signs reviewed: Yes Ordered Tests: Active Orders 24 hr Category Date Time Status BLOOD CULTURE Stat Lab 08/28/21 18:15 Received CBC W DIFF Stat Lab 08/28/21 18:10 Completed CMP Stat Lab 08/28/21 18:10 Completed ESR [Erythrocyte Sedimentation Rate] Stat Lab 08/28/21 18:20 Completed Lactic Acid Stat Lab 08/28/21 18:25 Completed Manual Differential NC Stat Lab 08/28/21 18:10 Completed Medication Summary Discontinued Medications Generic Name Dose Route Start Last Admin Trade Name Freq PRN Reason Stop Dose Admin Piperacillin Sod/Tazobactam 100 mls @ 200 mls/hr 08/28/21 18:57 08/28/21 19:14 Sod 3.375 gm/ Sodium Chloride IV 08/28/21 19:26 200 mls/hr STAT ONE Administration Sodium Chloride Confirm 08/28/21 19:08 Sodium Chloride 100ml Mini-Bag Plus Administered 08/28/21 19:09 Dose 100 mls @ ud IV .STK-MED ONE Piperacillin Sod/Tazobactam Sod Confirm 08/28/21 19:06 Piperacillin/Tazobactam Sodium 3.375 Gm Vial Administered 08/28/21 19:07 Dose 3.375 gm IV .STK-MED ONE Lab/Rad Data: Laboratory Result Diagrams 08/28/21 18:10 08/28/21 18:10 Laboratory Results 08/28/21 08/28/21 08/28/21 Range/Units 18:25 18:20 18:18 WBC (4.0-10.5) K/mm3 RBC (4.1-5.4) M/mm3 Hgb (12.0-16.0) gm/dl Hct (35-47) % MCV (78-100) fl MCH (26-32) pg MCHC (32-36) g/dl RDW (11.5-14.0) % Plt Count (150-450) K/mm3 MPV (7.5-11.0) fl ESR 127 H (0-20) mm/hr Sodium (137-145) mmol/L Potassium (3.5-5.1) mmol/L Chloride (98-107) mmol/L Carbon Dioxide (22-30) mmol/L Anion Gap (5-15) MEQ/L BUN (7-17) mg/dL Creatinine (0.52-1.04) mg/dL Estimated GFR ML/MIN Glucose (74-106) mg/dL Lactic Acid 4.4 H (0.4-2.0) Calcium (8.4-10.2) mg/dL Total Bilirubin (0.2-1.3) mg/dL AST (14-36) U/L ALT (0-35) U/L Alkaline Phosphatase (38-126) U/L Serum Total Protein (6.3-8.2) g/dL Albumin (3.5-5.0) g/dL Influenza Type A Ag NEGATIVE (NEGATIVE) Influenza Type B Ag NEGATIVE (NEGATIVE) RSV (PCR) NEGATIVE (Negative) SARS-CoV-2 (PCR) NEGATIVE (NEGATIVE) 08/28/21 08/28/21 Range/Units 18:10 18:10 WBC 19.1 H (4.0-10.5) K/mm3 RBC 3.18 L (4.1-5.4) M/mm3 Hgb 9.2 L (12.0-16.0) gm/dl Hct 30.6 L (35-47) % MCV 96.2 (78-100) fl MCH 28.9 (26-32) pg MCHC 30.1 L (32-36) g/dl RDW 15.6 H (11.5-14.0) % Plt Count 386 (150-450) K/mm3 MPV 8.5 (7.5-11.0) fl ESR (0-20) mm/hr Sodium 135 L (137-145) mmol/L Potassium 4.0 (3.5-5.1) mmol/L Chloride 91 L (98-107) mmol/L Carbon Dioxide 31 H (22-30) mmol/L Anion Gap 16.9 H (5-15) MEQ/L BUN 19 H (7-17) mg/dL Creatinine 3.74 H (0.52-1.04) mg/dL Estimated GFR 12.8 ML/MIN Glucose 226 H (74-106) mg/dL Lactic Acid (0.4-2.0) Calcium 9.7 (8.4-10.2) mg/dL Total Bilirubin 0.60 (0.2-1.3) mg/dL AST 23 (14-36) U/L ALT 22 (0-35) U/L Alkaline Phosphatase 105 (38-126) U/L Serum Total Protein 7.7 (6.3-8.2) g/dL Albumin 3.8 (3.5-5.0) g/dL Influenza Type A Ag (NEGATIVE) Influenza Type B Ag (NEGATIVE) RSV (PCR) (Negative) SARS-CoV-2 (PCR) (NEGATIVE) - Progress Progress Note: 08/28/21 19:[address] Dickens at [facility]. 08/28/21 19:24 Pt transferred due to need for dialysis 08/28/21 20:26 Zosyn 3.375mg IV before transfer Counseled pt/family regarding: lab results, diagnosis, need for follow-up - Departure Departure Disposition: Transfer Clinical Impression: Diabetic foot ulcer, Osteomyelitis, Sepsis Condition: Stable Critical Care Time: No Referrals: SARA KAUR [Primary Care Provider] - Follow up/PCP as directed
[2021-08-28] MEDS ORDERED: PIPERACILLIN/TAZOBACTAM IV ONE (19:06)
[2021-08-28] MEDS ORDERED: Sodium Chloride 100ML MINI-BAG PLUS 100 ML IV ONE (19:08)
[2021-08-28 20:08] VITALS: BP 115/52; PULSE 75
[2021-08-28 21:43] LABS: BAND 2 % (0.0-2.0); Hypochromia 1+; Lymphocytes 4 % (24-44); Microcytosis 1+; Monocyte 2 % (0.0-12.0); Platelet Estimate NORMAL (NORMAL); Total Cells Counted 100
== END 2021-08-28 20:23 | disposition short-term general hospital (02) ==
LOC: ED 17:36
DX: E11.621 Type 2 diabetes mellitus with foot ulcer (principal); E11.69 Type 2 diabetes mellitus with other specified complication; M86.9 Osteomyelitis, unspecified; A41.9 Sepsis, unspecified organism; E11.42 Type 2 diabetes mellitus with diabetic polyneuropathy; E11.22 Type 2 diabetes mellitus with diabetic chronic kidney disease; L97.516 Non-pressure chronic ulcer of other part of right foot with bone involvement without evidence of necrosis; Z79.4 Long term (current) use of insulin; I12.0 Hypertensive chronic kidney disease with stage 5 chronic kidney disease or end stage renal disease; N18.6 End stage renal disease; Z99.2 Dependence on renal dialysis; Z79.899 Other long term (current) drug therapy
CPT/HCPCS: 0241U; 36415; 80053; 83605; 85025; 85652; 87040; 96374; 99284; 87077